=== PATIENT | male | born 1930 | race African-American/Black ===

== ENCOUNTER → 2016-11-01 | Outpatient (CLI) | payer OTHER ==
[~2016-11-01] MED LIST: IOPAMIDOL (ISOVUE-300) 100 ML BTL IV ONE
== END ==
LOC: FIMAGING 10:18
PROVIDERS: ATTEND Psychiatry & Neurology Neurology
DX: M43.17 Spondylolisthesis, lumbosacral region (principal); M51.36 Other intervertebral disc degeneration, lumbar region; K59.00 Constipation, unspecified
CPT/HCPCS: 72193; Q9967

== ENCOUNTER → 2016-11-09 | Outpatient (CLI) | payer OTHER | LOC: FIMAGING 13:44 | PROVIDERS: ATTEND Internal Medicine | DX: R91.1 Solitary pulmonary nodule (principal); I25.10 Atherosclerotic heart disease of native coronary artery without angina pectoris; Z87.891 Personal history of nicotine dependence; Z85.46 Personal history of malignant neoplasm of prostate ==

== ENCOUNTER → 2016-12-05 | Outpatient (CLI) | payer OTHER | LOC: FIMAGING 08:22 | PROVIDERS: ATTEND Internal Medicine Hematology & Oncology | DX: Z13.820 Encounter for screening for osteoporosis (principal); M85.80 Other specified disorders of bone density and structure, unspecified site; Z82.62 Family history of osteoporosis; Z85.46 Personal history of malignant neoplasm of prostate ==

== ENCOUNTER → 2017-07-05 | Outpatient (CLI) | payer OTHER | LOC: FIMAGING 08:07 | PROVIDERS: ATTEND Internal Medicine Hematology & Oncology | DX: M19.90 Unspecified osteoarthritis, unspecified site (principal); M43.17 Spondylolisthesis, lumbosacral region; Z98.1 Arthrodesis status; C61 Malignant neoplasm of prostate; Z95.0 Presence of cardiac pacemaker | CPT/HCPCS: 72040; 72100; 78306; A9503 ==

== ENCOUNTER → 2017-10-26 | Outpatient (CLI) | payer OTHER | LOC: FCPNEURO 21:00 | PROVIDERS: ATTEND Student in an Organized Health Care Education/Training Program | DX: G47.33 Obstructive sleep apnea (adult) (pediatric) (principal); G47.61 Periodic limb movement disorder ==

== ENCOUNTER 2018-02-11 21:02 | Inpatient (IN) | payer OTHER ==
--- NOTE | 2018-02-11 21:09 | EDPHY ---
H & P Time Seen by Provider: 02/11/18 21:08 HPI/ROS: Chief complaint. Bilateral knee pain HPI. 88-year-old male here by EMS with inability to walk. Bilateral knee pain. Dependent edema. Weakness to both legs. He has apparently been getting more weak through the day today. Both legs have been swollen quite some time. 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 He denies chest pain, shortness of breath, fever. No abdominal pain. ROS Constitutional. no fever/chills, no weakness Eyes. no problems with vision ENT. no sore throat, no nasal drainage Cardiovascular. no chest pain Respiratory. no shortness of breath, no cough Abdominal. no abdominal pain, no nausea/vomiting, no diarrhea . no problems urinating MS. Bilateral leg swelling and bilateral knee pain Skin. no rash Lymph. no swollen glands Neuro. Can't walk Past Medical/Surgical History: Neck fusion, pneumonia, DVT/PE, CVA, prostate cancer Social History: , nonsmoker, no alcohol Smoking Status: Former smoker Physical Exam: General Appearance: Alert well-developed male moderate distress vital signs are stable Eyes: Pupils equal and round no pallor or injection. ENT, Mouth: Mucous membranes are moist. Respiratory: There are no retractions, lungs are clear to auscultation. Cardiovascular: Regular rate and rhythm. Gastrointestinal: Abdomen is soft and nontender, no masses, bowel sounds normal. Neurological: Awake and alert, sensory and motor exams grossly normal. Skin: Warm and dry, no rashes. Musculoskeletal: Neck is supple nontender. Extremities bilateral leg swelling from knees down. Psychiatric: Patient is oriented X 3, there is no agitation. Constitutional: Initial Vital Signs Temperature (C) 36.7 C 02/11/18 21:10 Heart Rate 67 02/11/18 21:10 Respiratory Rate 16 02/11/18 21:10 Blood Pressure 176/96 H 02/11/18 21:10 O2 Sat (%) 97 02/11/18 21:10 O2 Delivery Mode Room Air Allergies/Adverse Reactions: No Known Allergies Allergy (Unverified 12/25/15 22:53) Home Medications: Medication Instructions Recorded Aspirin 81mg (OTC) 12/25/15 Casodex (RX) 12/25/15 Lipitor 12/25/15 Namenda 5 mg (RX) 12/25/15 Proscar 5 MG (RX) 12/25/15 Eliquis 02/11/18 Medical Decision Making - Diagnostics Imaging Results: Imaging Impressions Chest X-Ray 02/11/18 21:09 Impression: 1. No acute findings in the chest. 2. Limited assessment of groundglass opacity seen on the prior CT. If this has not been followed on an outside CT, recommend follow-up unenhanced chest CT. 3. Cardiomegaly without onelia failure. 4. Additional findings, as above. Findings discussed with JOSH PARRA 02/11/2018 at 22:00. Knee X-Ray 02/11/18 21:09 Impression: 1. Increased moderate bilateral osteoarthritis with no acute osseous findings. 2. Small left and trace right effusions. 3. Additional findings as above. Knee X-Ray 02/11/18 21:09 Impression: 1. Increased moderate bilateral osteoarthritis with no acute osseous findings. 2. Small left and trace right effusions. 3. Additional findings as above. Extremity Venous Study 02/11/18 21:10 Impression: No evidence of deep vein thrombosis in the lower extremities. Findings discussed with JOSH PARRA 02/11/2018 at 21:43. Ultrasound both lower extremities reviewed by me and discussed with Dr. Cuellar showed no DVT nodule adjacent left upper lobe visible on CT--needs followup CT per Dr. Cuellar Chest x-ray otherwise shows LVH but no pneumonia Bilateral knee x-rays shows DJD but no fracture dislocation Procedures: IV normal saline, monitor Clots are cleared by patient blowing. Afrin nose spray to both nostrils. Inspection reveals no bleeding from the right nostril and some old blood in little bit of oozing of blood from the left nostril. No obvious source. Cotton ball soaked in TXA solution is placed in the left nostril. ED Course/Re-evaluation: On re-evaluation patient is stable. He and his and I talked about imaging and lab results. We discussed treatment plan including recommendation for admission. He expresses understanding agreement We attempted to ambulate the patient in the emergency department he was unable to ambulate. I consulted discussed case with Dr. Yee who agrees to the admission Differential Diagnosis: Can't walk. I considered DVT, knee fractures, autoimmune. He has a normal sed rate. No significant evidence for congestive heart failure despite bilateral pedal edema - Data Points Laboratory Results: Laboratory Results 02/11/18 22:55 02/11/18 22:30 02/11/18 02/11/18 02/11/18 22:58 22:55 22:55 WBC 4.72 10^3/uL 10^3/uL (3.80-9.50) RBC 3.38 10^6/uL L 10^6/uL (4.40-6.38) Hgb 11.8 g/dL L g/dL (13.7-17.5) Hct 35.3 % L % (40.0-51.0) MCV 104.4 fL H fL (81.5-99.8) MCH 34.9 pg H pg (27.9-34.1) MCHC 33.4 g/dL g/dL (32.4-36.7) RDW 13.7 % % (11.5-15.2) Plt Count 170 10^3/uL 10^3/uL (150-400) MPV 10.2 fL fL (8.7-11.7) Neut % (Auto) 62.5 % % (39.3-74.2) Lymph % (Auto) 24.2 % % (15.0-45.0) [place] % (Auto) 11.7 % % (4.5-13.0) Eos % (Auto) 0.8 % % (0.6-7.6) Baso % (Auto) 0.8 % % (0.3-1.7) Nucleat RBC Rel Count 0.0 % % (0.0-0.2) Absolute Neuts (auto) 2.95 10^3/uL 10^3/uL (1.70-6.50) Absolute Lymphs (auto) 1.14 10^3/uL 10^3/uL (1.00-3.00) Absolute Monos (auto) 0.55 10^3/uL 10^3/uL (0.30-0.80) Absolute Eos (auto) 0.04 10^3/uL 10^3/uL (0.03-0.40) Absolute Basos (auto) 0.04 10^3/uL 10^3/uL (0.02-0.10) Absolute Nucleated RBC 0.00 10^3/uL 10^3/uL (0-0.01) Immature Gran % 0.0 % % (0.0-1.1) Immature Gran # 0.00 10^3/uL 10^3/uL (0.00-0.10) ESR 5 MM/HR MM/HR (0-20) PT 15.9 SEC H SEC (12.0-15.0) INR 1.25 H (0.83-1.16) APTT 31.7 SEC SEC (23.0-38.0) Sodium Potassium Chloride Carbon Dioxide Anion Gap BUN Creatinine Estimated GFR Glucose Calcium POC Troponin I 0.01 ng/mL ng/mL (0.00-0.08) NT-Pro-B Natriuret Pep 02/11/18 02/11/18 22:30 22:30 WBC RBC Hgb Hct MCV MCH MCHC RDW Plt Count MPV Neut % (Auto) Lymph % (Auto) [place] % (Auto) Eos % (Auto) Baso % (Auto) Nucleat RBC Rel Count Absolute Neuts (auto) Absolute Lymphs (auto) Absolute Monos (auto) Absolute Eos (auto) Absolute Basos (auto) Absolute Nucleated RBC Immature Gran % Immature Gran # ESR PT REJ INR TNP APTT Sodium 143 mEq/L mEq/L (135-145) Potassium 4.5 mEq/L mEq/L (3.3-5.0) Chloride 107 mEq/L mEq/L (97-110) Carbon Dioxide 27 mEq/l mEq/l (22-31) Anion Gap 9 mEq/L mEq/L (8-16) BUN 23 mg/dL mg/dL (7-23) Creatinine 1.2 mg/dL mg/dL (0.7-1.3) Estimated GFR 57 Glucose 90 mg/dL mg/dL (70-100) Calcium 8.6 mg/dL mg/dL (8.5-10.4) POC Troponin I NT-Pro-B Natriuret Pep 404 pg/mL pg/mL (0-450) Medications Given: Discontinued Medications Acetaminophen (Tylenol) 650 mg PO EDNOW ONE Stop: 02/11/18 23:25 Last Admin: 02/11/18 23:26 Dose: 650 mg Point of Care Test Results: Chemistry 02/11/18 22:58 POC Troponin I 0.01 ng/mL ng/mL (0.00-0.08) Departure - Departure Disposition: Home, Routine, Self-Care Clinical Impression: Cannot walk Condition: Fair Referrals: Patient,NotPresent [Unknown] - As per Instructions
--- NOTE | 2018-02-11 22:47 | CPEKG ---
Heart Rate: 65 RR Interval: 923 P-R Interval: 184 QRSD Interval: 152 QT Interval: 472 QTC Interval: 491 QRS Stephens: -27 T Wave Stephens: 156 EKG Severity - ABNORMAL ECG - EKG Impression: ATRIAL-PACED RHYTHM EKG Impression: LEFT BUNDLE BRANCH BLOCK EKG Impression: ATRIAL PACING IS NEW IN COMPARISON TO PRIOR Electronically Signed By: Cam Gibbs 14-Feb-2018 20:42:01
[2018-02-11 23:05] LABS: PLATELET COUNT 170 10^3/uL (150-400)
[2018-02-11 23:14] LABS: INR 1.25 (0.83-1.16); PROTIME(PATIENT) 15.9 SEC (12.0-15.0)
[2018-02-11] MEDS ORDERED: ACETAMINOPHEN 325 MG TAB PO ONE (23:24)
[2018-02-12] MEDS ORDERED: ONDANSETRON 4 MG/2 ML VIAL IVP PRN (00:19)
[2018-02-12] MEDS ORDERED: ONDANSETRON DISINTEGRATING 4 MG TAB PO PRN (00:19)
--- NOTE | 2018-02-12 03:24 | PDGENHP ---
History and Physical - Chief Complaint Weakness - History of Present Illness 88 yo M w/ hx of DVT, bradycardia s/p PPM, HTN, and prostate CA p/w sub-acute weakness. Patient tells me he has been feeling weak for some time. This progressed to the point where he fell a few times yesterday and could not get up on his own. He is complaining of L hip and bilateral knee pain, but denies acute trauma to any of those sites. He denies infectious ROS and denies recent illness. At the time of my evaluation his only complaint is knee pain. His vital signs have been unremarkable aside from hypertension. He was unable to ambulate in the ED so he is being admitted for evaluation. History Information - Allergies/Home Medication List Allergies/Adverse Reactions: No Known Allergies Allergy (Unverified 12/25/15 22:53) Home Medications: Aspirin 81mg (OTC) 12/25/15 [Last Taken Unknown] Casodex (RX) 12/25/15 [Last Taken Unknown] Lipitor 12/25/15 [Last Taken Unknown] Namenda 5 mg (RX) 12/25/15 [Last Taken Unknown] Proscar 5 MG (RX) 12/25/15 [Last Taken Unknown] Eliquis 02/11/18 [Last Taken Unknown] I have personally reviewed and updated: family history, medical history - Past Medical History cancer (Prostate), DVT, hypertension - Surgical History Reports: pacemaker/AICD - Family History Positive for: cancer - Social History Smoking Status: Former smoker Review of Systems Review of Systems: ROS: 10pt was reviewed & negative except for what was stated in HPI & below Physical Exam Physical Exam: Temp Pulse Resp BP Pulse Ox 36.7 C 66 14 183/106 H 96 02/12/18 02:30 02/12/18 02:30 02/12/18 02:30 02/12/18 02:30 02/12/18 02:30 Constitutional: no apparent distress, appears nourished Eyes: PERRL, EOMI Ears, Nose, Mouth, Throat: moist mucous membranes, no oral mucosal ulcers Cardiovascular: regular rate and rhythym, systolic murmur, edema (1+ b/l FANTA) Respiratory: no respiratory distress, clear to auscultation Gastrointestinal: normoactive bowel sounds, soft, non-tender abdomen Skin: warm, normal color, other (mild LUE edema) Neurologic: AAOx3, weakness (Sublte, b/l LE weakness (4+/5) R>L), CN II-XII Intact Psychiatric: interacting appropriately, not anxious Lab Data & Imaging Review 02/11/18 22:55 02/11/18 22:30 WBC 4.72 10^3/uL (3.80-9.50) 02/11/18 22:55 RBC 3.38 10^6/uL (4.40-6.38) L 02/11/18 22:55 Hgb 11.8 g/dL (13.7-17.5) L 02/11/18 22:55 Hct 35.3 % (40.0-51.0) L 02/11/18 22:55 MCV 104.4 fL (81.5-99.8) H 02/11/18 22:55 MCH 34.9 pg (27.9-34.1) H 02/11/18 22:55 MCHC 33.4 g/dL (32.4-36.7) 02/11/18 22:55 RDW 13.7 % (11.5-15.2) 02/11/18 22:55 Plt Count 170 10^3/uL (150-400) 02/11/18 22:55 MPV 10.2 fL (8.7-11.7) 02/11/18 22:55 Neut % (Auto) 62.5 % (39.3-74.2) 02/11/18 22:55 Lymph % (Auto) 24.2 % (15.0-45.0) 02/11/18 22:55 [place] % (Auto) 11.7 % (4.5-13.0) 02/11/18 22:55 Eos % (Auto) 0.8 % (0.6-7.6) 02/11/18 22:55 Baso % (Auto) 0.8 % (0.3-1.7) 02/11/18 22:55 Nucleat RBC Rel Count 0.0 % (0.0-0.2) 02/11/18 22:55 Absolute Neuts (auto) 2.95 10^3/uL (1.70-6.50) 02/11/18 22:55 Absolute Lymphs (auto) 1.14 10^3/uL (1.00-3.00) 02/11/18 22:55 Absolute Monos (auto) 0.55 10^3/uL (0.30-0.80) 02/11/18 22:55 Absolute Eos (auto) 0.04 10^3/uL (0.03-0.40) 02/11/18 22:55 Absolute Basos (auto) 0.04 10^3/uL (0.02-0.10) 02/11/18 22:55 Absolute Nucleated RBC 0.00 10^3/uL (0-0.01) 02/11/18 22:55 Immature Gran % 0.0 % (0.0-1.1) 02/11/18:55 Immature Gran # 0.00 10^3/uL (0.00-0.10) 02/11/18 22:55 ESR 5 MM/HR (0-20) 02/11/18 22:55 PT 15.9 SEC (12.0-15.0) H 02/11/18 22:55 INR 1.25 (0.83-1.16) H 02/11/18 22:55 APTT 31.7 SEC (23.0-38.0) 02/11/18 22:55 Sodium 143 mEq/L (135-145) 02/11/18 22:30 Potassium 4.5 mEq/L (3.3-5.0) 02/11/18 22:30 Chloride 107 mEq/L (97-110) 02/11/18 22:30 Carbon Dioxide 27 mEq/l (22-31) 02/11/18 22:30 Anion Gap 9 mEq/L (8-16) 02/11/18 22:30 BUN 23 mg/dL (7-23) 02/11/18 22:30 Creatinine 1.2 mg/dL (0.7-1.3) 02/11/18 22:30 Estimated GFR 57 02/11/18 22:30 Glucose 90 mg/dL (70-100) 02/11/18 22:30 Calcium 8.6 mg/dL (8.5-10.4) 02/11/18 22:30 POC Troponin I 0.01 ng/mL (0.00-0.08) 02/11/18 22:58 NT-Pro-B Natriuret Pep 404 pg/mL (0-450) 02/11/18 22:30 Imaging Review: Imaging Impressions Chest X-Ray 02/11/18 21:09 Impression: 1. No acute findings in the chest. 2. Limited assessment of groundglass opacity seen on the prior CT. If this has not been followed on an outside CT, recommend follow-up unenhanced chest CT. 3. Cardiomegaly without onelia failure. 4. Additional findings, as above. Findings discussed with JOSH PARRA 02/11/2018 at 22:00. Knee X-Ray 02/11/18 21:09 Impression: 1. Increased moderate bilateral osteoarthritis with no acute osseous findings. 2. Small left and trace right effusions. 3. Additional findings as above. Knee X-Ray 02/11/18 21:09 Impression: 1. Increased moderate bilateral osteoarthritis with no acute osseous findings. 2. Small left and trace right effusions. 3. Additional findings as above. Extremity Venous Study 02/11/18 21:10 Impression: No evidence of deep vein thrombosis in the lower extremities. Findings discussed with JOSH PARRA 02/11/2018 at 21:43. Visualized and Interpreted EKG results: Yes EKG Interpretation: Positive for: other (Atrially paced, LBBB) Assessment & Plan Assessment: 88 yo M p/w subacute weakness. Plan: 1. Subacute weakness - Generalized; patient tells me this has been progressing for some time. I suspect this is mostly due to deconditioning, unclear if additional, acute etiology is present. Laboratory work-up, CXR, b/l knee XR's, and b/l LE dopplers not revealing of acute pathology. - Admit for observation - PT/OT evaluations - Will order UA to complete basic infectious work-up 2. Hypertension - Elevated while here but improved when allowed to rest. Needs med reconciliation as patient does not recall home meds. 3. 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 4. Hx of prostate CA 5. Bradycardia - s/p PPM Diet - Regular Code - Full Ppx - LMWH Dispo - Admit under observation status
[2018-02-12 09:32] LABS: PLATELET COUNT 145 10^3/uL (150-400)
[2018-02-12] MEDS: ACETAMINOPHEN 325 MG TAB PO PRN (11:53)
--- NOTE | 2018-02-12 12:02 | ASMTCMCOM ---
CM Note CM Note Notes: Chart reviewed for discharge planning purposes. 88 year old male admitted through the ED with inability to walk. He normally resides at home with his . He has two sons but they live in [place] and [place]. Patient undergoing diagnostics at this time. PT and OT evals pending. CM to follow. Plan: TBD Date Signed: 02/12/2018 12:02 PM Electronically Signed By:Pamela Deal RN
--- NOTE | 2018-02-12 14:16 | HOSPPROG ---
Hospitalist Progress Note Assessment/Plan: 1. Subacute weakness * says mostly legs with pain in back and hip and radiating dfown legs * will get MRI spine and pelvis * has a history prostate cancer 2. Hypertension 3. 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 4. Hx of prostate CA - recurrence 2013 5. Bradycardia - s/p PPM Subjective: no changes Objective: Vital Signs Temp Pulse Resp BP Pulse Ox 36.8 C 76 16 153/103 H 96 02/12/18 08:26 02/12/18 13:27 02/12/18 13:27 02/12/18 13:27 02/12/18 13:27 Laboratory Results 02/12/18 09:24 02/12/18 09:24 02/11/18 02/12/18 02/13/18 05:59 05:59 05:59 Intake Total 200 Output Total 500 Balance -300 PT 15.9 SEC (12.0-15.0) H 02/11/18 22:55 INR 1.25 (0.83-1.16) H 02/11/18 22:55 - Physical Exam Constitutional: no apparent distress, appears nourished, not in pain Eyes: anicteric sclera, EOMI Ears, Nose, Mouth, Throat: moist mucous membranes, hearing normal Cardiovascular: regular rate and rhythym, no murmur, rub, or gallop Respiratory: no respiratory distress, no rales or rhonchi Gastrointestinal: normoactive bowel sounds, soft, non-tender abdomen, no palpable masses Skin: warm Neurologic: AAOx3, other (decreased patellar reflexes), No weakness (no foca;) ICD10 Worksheet Patient Problems: Problems Problem Status Onset Cannot walk Acute DVT (deep venous thrombosis) Acute Hypertension Acute Internal jugular vein thrombosis Acute Swelling of left hand Acute
--- NOTE | 2018-02-12 16:18 | GCON ---
[f rep st] CONSULTATION ONCOLOGY INITIAL VISIT. PRIMARY ONCOLOGIST: Lisbeth Jimenez MD REASON FOR CONSULTATION: Metastatic prostate cancer. HISTORY OF PRESENT ILLNESS: The patient is an 88-year-old gentleman, whom I follow for [facility]. He was diagnosed in 2000, with a stage II (T1c) prostate cancer with a PSA less than 10. He und erwent brachytherapy. In 2010, he had a rising PSA, and it was greater than 10 by 2012. He started and was on bicalutamide plus finasteride from August 17 through June 2017, requiring prophylacti c radiation to his breast for gynecomastia. Due to rising PSA, I converted him over to Lupron plus P rolia in July 2017. Prior to doing that, I obtained a bone scan in July 2017, which did not show any definitive osseous metastasis. He had a compression fracture at L2. I performed a bone den sity scan last year that showed just mild osteopenia. I recently saw him on January 08, and he was doing about the same. We talked about once his PSA dropped b elow 1, we could consider doing cyclic Lupron; however, at home, he had been having progressive weakn ess in his lower extremities. He had had some pain in the right lower extremity but weaker on the le ft. He also has some pain in his left low back. He denies any trauma. When he was at the dinner ta ble last night, he states that he could not get up, and so [facility]. Thus far, workup has been unrevealing. He has a pacemaker, and they are seeing if it is the right kind that can be used with an MRI. PAST MEDICAL HISTORY: ALLERGIES: He has no known drug allergies. HOME MEDICATIONS: Include the Lupron every 3 months and Prolia every 6 months, cholecalciferol, gluc osamine, gabapentin, donepezil, apixaban, and acetaminophen. CHRONIC ILLNESSES: Include the prostate cancer as per HPI, history of DVT, hypertension, and early d ementia. He has had a previous TIA, elevated cholesterol, pacemakers placed for sinus bradycardia, C OPD. SURGICAL HISTORY: Includes appendectomy, hemorrhoidectomy, plate in C5, vasectomy, cataract surgery, and the pacemaker surgery. SOCIAL HISTORY: He is . 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 He only uses alcohol occasionally . Does not abuse any drugs. He is a 94-[id number]-history smoker. FAMILY HISTORY: Grew up in [place], with descent. Mother at age 36 pos tpartum. Father maybe from bladder cancer. He is unsure. One brother of throat cancer. Another brother from unknown causes, and a sister of CHF, and then, he has 4 children. REVIEW OF SYSTEMS: 10-point review of systems performed. Pertinent positives per HPI. Otherwise ne gative. PHYSICAL EXAM: VITAL SIGNS: Temperature 36.8. Pulse is 76. Blood pressure is 153/103. GENERAL: He is a comfortable-appearing gentleman sitting up in a chair, in no distress. HEEN T: Unremarkable. LUNGS: Clear. CARDIAC: Regular. ABDOMEN: Soft, nontender without organomegaly . MUSCULOSKELETAL: Nontender over his spine. SULEMA EXAM: Reveals no peripheral lymphadenopathy. LOWER EXTREMITIES: He has some mild weakness, left worse than right. DTRs are decreased bilaterally . He has sensation in his feet, but he does feel that it is somewhat numbed. LABS: Mild anemia, 12.1, but normal white count and platelet count. Chemistries were unremarkable. Chest x-ray showed some cardiomegaly. Knee x-ray: Some arthritis, trace effusions. Extremities: Venous study showed no DVT. Most recent PSA, 1 month ago, was down to 3.33 and continued to drop sin ce he started on Lupron, which was at 15 in July. IMPRESSION: 1. Metastatic prostate cancer without obvious bone lesions on last bone scan. 2. Subacute lower extremity weakness of unclear cause. 3. Cardiac history with pacemaker. 4. Early dementia. I do not have an explanation for his lower extremity weakness. Definitely with his history of prosta te cancer, even though it seems to be responding, I agree with getting an MRI of his lower spine. If there is a mass present, I would lean towards getting a biopsy if it can be safely done just to make sure it is not some other etiology with his responding PSA and negative bone scan in the last 6 chris hs. I did not recommend steroids at this time since it is unclear as to the cause, but if it worsens , it maybe some we need to initiate. I will follow along with you while he is in the hospital. /[id number]/MODL
[2018-02-12] MEDS: hydrALAZINE 20 MG/ML VIAL IVP PRN (20:06)
[2018-02-12] MEDS: APIXABAN 5 MG TAB PO SCH (20:11)
[2018-02-12] MEDS: GABAPENTIN 300 MG CAP PO SCH (20:11)
[2018-02-12] MEDS: DONEPEZIL HCL 5 MG TAB PO SCH (20:11)
[2018-02-12] MEDS ORDERED: LACTULOSE 20 GM/30 ML UDCUP PO PRN (22:26)
[2018-02-12] MEDS ORDERED: POLYETHYLENE GLYCOL 3350 17 GM PKT PO PRN (22:26)
[2018-02-12] MEDS ORDERED: BISACODYL 10 MG SUPP PR PRN (22:26)
[2018-02-12] MEDS: MAGNESIUM HYDROXIDE 30 ML UDCUP PO PRN (22:51)
[2018-02-13] MEDS ORDERED: GADOBUTROL 10 ML VIAL IVP ONE (17:03)
--- NOTE | 2018-02-13 22:29 | ASMTCMCOM ---
CM Note CM Note Notes: Chart reviewed, discussed patient status with MD. MRI not done due to patient having high blood pressure. Dr. Thao hopes to attempt test again today. Patient will likely need a SNF at discharge as he is unable to ambulate. CM to follow for needs. Plan: TBD likely SNF rehab Date Signed: 02/13/2018 11:43 AM Electronically Signed By:Pamela Deal RN
[2018-02-14] MEDS: hydrALAZINE 20 MG/ML VIAL IVP PRN ×2 (06:11→16:53)
[2018-02-14] MEDS: APIXABAN 5 MG TAB PO SCH ×3 (06:43→22:30)
[2018-02-14] MEDS: DONEPEZIL HCL 5 MG TAB PO SCH ×2 (06:44→22:30)
[2018-02-14] MEDS: GABAPENTIN 300 MG CAP PO SCH (06:44)
[2018-02-14] MEDS: SENNOSIDES/DOCUSATE SODIUM TAB PO SCH ×3 (06:44→22:30)
--- NOTE | 2018-02-14 10:33 | PDMN ---
Medical Necessity Medical necessity: change to IP; los>2mn for subacute weakness likely r/t deconditioning, mostly in LE's with pain in back and hip, radiating down legs; admit for MRI's, PT/OT;comorbid htn, hx DVT, bradycardia, and prostate CA; pre order and progress note 02/12/18
--- NOTE | 2018-02-14 13:02 | SOAPPROG ---
SOAP Progress Note Assessment/Plan: E&M prostate cancer * Prostate cancer: no previous obvious mets on either last bone scan or new MRI. On LHRH agonist with good response with dropping PSA * Lower Ext. Weakness: spinal stenosis on MRI; no sign of malignancy. Agree with PT * Early dementia: No behavioral issues reported Subjective: Walking in peralta with PT. No acute complaints although not as strong as he would like. Objective: Vital Signs Temp Pulse Resp BP Pulse Ox 36.8 C 65 18 114/68 96 02/14/18 08:36 02/14/18 08:36 02/14/18 08:36 02/14/18 08:36 02/14/18 08:36 Laboratory Results 02/12/18 09:24 02/12/18 09:24 02/13/18 02/14/18 02/15/18 05:59 05:59 05:59 Intake Total 240 400 Output Total 475 550 350 Balance -235 -150 -350 PT 15.9 SEC (12.0-15.0) H 02/11/18 22:55 INR 1.25 (0.83-1.16) H 02/11/18 22:55 MRI Lumbar Spine (Without and With Contrast) Impression: 1. Bilateral moderate to severe foraminal stenosis at L4-L5 and L5-S1, right worse than left at both levels. Both the right L4 as well as right L5 nerves may be affected. 2. Mild multilevel canal stenosis as above described, mostly due to facet arthropathy. 3. 6 mm anterolisthesis of L5 on S1. Dictated By: America Cyr MD Physical Exam - Physical Exam General Appearance: no apparent distress Neuro/Psych: other (walking with assistance and walker) ICD10 Worksheet Patient Problems: Problems Problem Status Onset Cannot walk Acute DVT (deep venous thrombosis) Acute Hypertension Acute Internal jugular vein thrombosis Acute Swelling of left hand Acute
--- NOTE | 2018-02-14 14:10 | ASMTCMCOM ---
CM Note CM Note Notes: PT recommending SNF. Pt and agreed. They are interested in [facility]. Referral faxed. CM to follow. Date Signed: 02/14/2018 02:10 PM Electronically Signed By:Christin Barun LCSW
--- NOTE | 2018-02-14 14:25 | HOSPPROG ---
Hospitalist Progress Note Assessment/Plan: 1. L4-5, L5-S1 Spinal stenosis with bilateral radiculopathy and weakness right worse than Left * cont with PT/OT * Will need Rehab * Can f/u with NS as an op if needed, although not a good surgical candidate given his dementia 2. Hypertension 3. 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 4. Hx of prostate CA - recurrence 2013 -no e/o of mets on MRI 5. Bradycardia - s/p PPM 6. Dementia Plan: Cont PT SNF tomorrow Change Gabapentin from 300 HS to 100 TID. Can titrate from there Subjective: still with some radiculopathy. Has some confusion. no cp or sob. no n/v. Objective: Vital Signs Temp Pulse Resp BP Pulse Ox 36.8 C 65 18 114/68 96 02/14/18 08:36 02/14/18 08:36 02/14/18 08:36 02/14/18 08:36 02/14/18 08:36 Laboratory Results 02/12/18 09:24 02/12/18 09:24 02/13/18 02/14/18 02/15/18 05:59 05:59 05:59 Intake Total 240 400 Output Total 475 550 350 Balance -235 -150 -350 PT 15.9 SEC (12.0-15.0) H 02/11/18 22:55 INR 1.25 (0.83-1.16) H 02/11/18 22:55 - Physical Exam Constitutional: no apparent distress Eyes: PERRL, EOMI Ears, Nose, Mouth, Throat: moist mucous membranes, hearing normal, ears appear normal Cardiovascular: regular rate and rhythym, No edema Respiratory: no respiratory distress, no rales or rhonchi, clear to auscultation Gastrointestinal: normoactive bowel sounds, soft, non-tender abdomen Skin: warm Musculoskeletal: generalized weakness Neurologic: No AAOx3 Psychiatric: interacting appropriately, encephalopathic Lymph, Heme, Immunologic: No petechiae ICD10 Worksheet Patient Problems: Problems Problem Status Onset Cannot walk Acute DVT (deep venous thrombosis) Acute Hypertension Acute Internal jugular vein thrombosis Acute Swelling of left hand Acute
[2018-02-14] MEDS ORDERED: GABAPENTIN 300 MG CAP PO SCH (16:00)
[2018-02-14] MEDS: GABAPENTIN 100 MG CAP PO SCH ×2 (16:53→22:30)
[2018-02-14] MEDS: ACETAMINOPHEN 325 MG TAB PO PRN (22:29)
[2018-02-14] MEDS: MAGNESIUM HYDROXIDE 30 ML UDCUP PO PRN (22:30)
[2018-02-15] MEDS: APIXABAN 5 MG TAB PO SCH (08:56)
[2018-02-15] MEDS: SENNOSIDES/DOCUSATE SODIUM TAB PO SCH (08:56)
[2018-02-15] MEDS: GABAPENTIN 100 MG CAP PO SCH (08:56)
[2018-02-15 11:35] VITALS: BP 158/90
[2018-02-15] MEDS ORDERED: GABAPENTIN 100 MG CAP PO SCH (12:07)
--- NOTE | 2018-02-15 12:16 | PDIAF ---
- Diagnosis Diagnosis: back pain Code Status: Full Code - Medication Management Discharge Medications: Medications to Continue on Transfer Apixaban [Eliquis] 5 mg PO BID 02/11/18 [Last Taken Unknown] Acetaminophen [Tylenol 325mg (*)] 325 mg PO DAILY PRN 02/12/18 [Last Taken Unknown] Cholecalciferol Vit D3 [Vitamin D3 (*)] 1,000 units PO DAILY 02/12/18 [Last Taken Unknown] Donepezil HCl [Aricept 5 MG (*)] 5 mg PO HS 02/12/18 [Last Taken Unknown] Glucosamine Sulfate [Glucosamine Sulfate 500 MG (*)] 500 mg PO DAILY 02/12/18 [ Last Taken Unknown] Herbals/Supplements -Info Only 1 ea PO DAILY 02/12/18 [Last Taken Unknown] Gabapentin [Neurontin 100 MG (*)] 200 mg PO TID #90 cap 02/15/18 [Last Taken Unknown] Polyethylene Glycol 3350 [Miralax 17 gm (*)] 17 gm PO DAILY PRN #30 pkt [Last Taken Unknown] Discharge Medications: Refer to the Discharge Home Medication list for PRN reason. - Orders Services needed: Registered Nurse, Physical Therapy, Occupational Therapy Diet Recommendation: no restrictions on diet Diet Texture: Regular Texture Diet Additional Instructions: Activity: as tolerated F/U: with PCP in 1-3 weeks - Follow Up Care Current Providers and Referrals: Patient,NotPresent [Unknown] - As per Instructions
--- NOTE | 2018-02-15 12:43 | ASMTCMCOM ---
CM Note CM Note Notes: Chart reviewed. Patient medically clear to dc today. [facility] accepted. Final orders sent via allscripts. Transportation has been arranged for 2 pm via wheelchair. CM available should other needs arise. Plan: To [facility] rehab. Date Signed: 02/15/2018 12:42 PM Electronically Signed By:Pamela Deal RN
--- NOTE | 2018-02-15 12:46 | ASMTLACE ---
LACE Length of stay for Answers: 3 days current admission Acuity / Level of Answers: Yes Care: Did the patient have an inpatient admission? Comorbidities - select Answers: Any tumor (including all that apply lymphoma or leukemia) Cerebrovascular disease (CVA, TIA, aneurysms, vasc ular dementia) Other Notes: Hx of DVT/PE; HTN # of Emergency department Answers: 1-2 visits in the last 6 months Score: 11 Date Signed: 02/15/2018 12:44 PM Electronically Signed By:Pamela Deal RN
--- NOTE | 2018-02-15 14:14 | PDDCSUM ---
Discharge Summary Discharge Summary: This is a 88 yo male admitted with low back pain with radiculopathy and weakness. Given his hx of prostate cancer there was concerns for recurrence. MRI did not show this but was c/w with L4-5, L5-S1 Spinal stenosis. Given his dementia and advance age, he was felt not to be a good surgical candidate and a trial of rehab will be attempted first and prior to additional f/u with NS. He is being d/c to SNF DDX 1. L4-5, L5-S1 Spinal stenosis with bilateral radiculopathy and weakness right worse than Left * cont with PT/OT * Will need Rehab * Can f/u with NS as an op if needed, although not a good surgical candidate given his dementia 2. Hypertension 3. 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 4. Hx of prostate CA - recurrence 2013 -no e/o of mets on MRI 5. Bradycardia - s/p PPM 6. Dementia Exam: NAD AAOX3 RRR CTA B S/NT/ND MEDS: SEE MED REC F/U: WITH PCP IN 1-2 WEEKS TOTAL TIME SPENT ON D/C IS 35 MINS
--- NOTE | 2018-02-15 15:01 | ASDISCHSUM ---
Discharge Information Plan Status:SNF Medically Cleared to Leave:02/15/2018 Discharge Date:02/15/2018 02:03 PM D/C Disposition:Senior Living Facility ADT D/C Disposition:Senior Living Facility Projected Discharge Date:02/15/2018 11:00 AM Transportation at D/C: Discharge Delay Reason: Follow-Up Date:02/15/2018 11:00 AM Discharge Slot: Final Diagnosis: Placement Information Referral Type:*Retirement/SNF Referral ID:[id number] Provider Name:Madeline Raymundo Address 1:[address] Phone Number: Address 2: Fax Number: City:[place] Selection Factors: State:[place] Patient Contact Information Contact Name:EFE Relationship: Address:[address] City:[place] Alternate Phone: State/Zip Code:[place] [address] Email: Financial Information Financial Class:Medicare Primary Plan Desc:MEDICARE INPATIENT Primary Plan Number:[id number] Secondary Plan Desc:[employer] Secondary Plan Number:[id number] Assessment Information LACE LACE Length of stay for Answers: 3 days current admission Acuity / Level of Answers: Yes Care: Did the patient have an inpatient admission? Comorbidities - select Answers: Any tumor (including all that apply lymphoma or leukemia) Cerebrovascular disease (CVA, TIA, aneurysms, vasc ular dementia) Other Notes: Hx of DVT/PE; HTN # of Emergency department Answers: 1-2 visits in the last 6 months Score: 11 Date Signed: 02/15/2018 12:44 PM Electronically Signed By:Pamela Deal RN [facility] CM Progress Note CM Note CM Note Notes: Chart reviewed for discharge planning purposes. 88 year old male admitted through the ED with inability to walk. He normally resides at home with his . He has two sons but they live in [place]. Patient undergoing diagnostics at this time. PT and OT jazmynals pending. CM to follow. Plan: TBD Date Signed: 02/12/2018 12:02 PM Electronically Signed By:Pamela Deal RN [facility] CM Progress Note CM Note CM Note Notes: Chart reviewed, discussed patient status with MD. MRI not done due to patient having high blood pressure. Dr. Thao hopes to attempt test again today. Patient will likely need a SNF at discharge as he is unable to ambulate. CM to follow for needs. Plan: TBD likely SNF rehab Date Signed: 02/13/2018 11:43 AM Electronically Signed By:Pamela Deal RN [facility] CM Progress Note CM Note CM Note Notes: PT recommending SNF. Pt and agreed. They are interested in [facility]. Referral faxed. CM to follow. Date Signed: 02/14/2018 02:10 PM Electronically Signed By:Christin Braun LCSW [facility] CM Progress Note CM Note CM Note Notes: Chart reviewed. Patient medically clear to dc today. [facility] accepted. Final orders sent via [employer]Whatever. Transportation has been arranged for 2 pm via wheelchair. CM available should other needs arise. Plan: To [facility] rehab. Date Signed: 02/15/2018 12:42 PM Electronically Signed By:Pamela Deal RN Intervention Information Intervention Type:*CROFT-Signed Date of Service:02/12/2018 01:54 PM Patient Type:Observation Staff Member:Alicia Nash Hours: Discipline: Severity: Comment: Intervention Type:*IM-Signed Date of Service:02/15/2018 01:52 PM Patient Type:Inpatient Staff Member:Alicia Nash Hours: Discipline: Severity: Comment:
== END 2018-02-15 14:03 | DRG 552 ==
LOC: EDUNIT# → OBSVTOIN 02-12 00:19 → F1N 02-12 02:28
PROVIDERS: ADMIT Student in an Organized Health Care Education/Training Program; ATTEND Student in an Organized Health Care Education/Training Program
DX: M48.061 Spinal stenosis, lumbar region without neurogenic claudication (principal); M48.07 Spinal stenosis, lumbosacral region; F03.90 Unspecified dementia, unspecified severity, without behavioral disturbance, psychotic disturbance, mood disturbance, and anxiety; M54.16 Radiculopathy, lumbar region; M54.17 Radiculopathy, lumbosacral region; I10 Essential (primary) hypertension; R00.1 Bradycardia, unspecified; Z86.718 Personal history of other venous thrombosis and embolism; Z79.01 Long term (current) use of anticoagulants; Z95.810 Presence of automatic (implantable) cardiac defibrillator; Z85.46 Personal history of malignant neoplasm of prostate
CPT/HCPCS: 84484-PO; 97110-GP; 97116-GP; 97161-GP; A9585; G8978-GP-CJ; G8978-GP-CK; G8979-GP-CI; G8980-GP-CJ; J0360

== ENCOUNTER → 2018-04-24 | Outpatient (CLI) | payer OTHER | LOC: FIMAGING 08:53 | PROVIDERS: ATTEND Psychiatry & Neurology Neurology | DX: M48.03 Spinal stenosis, cervicothoracic region (principal); M48.02 Spinal stenosis, cervical region; M50.21 Other cervical disc displacement, high cervical region; Z98.890 Other specified postprocedural states ==

== ENCOUNTER → 2018-09-27 | Outpatient (CLI) | payer OTHER | LOC: FCPNEURO 20:00 | PROVIDERS: ATTEND Student in an Organized Health Care Education/Training Program | DX: G47.33 Obstructive sleep apnea (adult) (pediatric) (principal); G47.39 Other sleep apnea ==

== ENCOUNTER → 2018-12-13 | Outpatient (CLI) | payer OTHER | LOC: FCPNEURO 06:55 | PROVIDERS: ATTEND Student in an Organized Health Care Education/Training Program | DX: G47.33 Obstructive sleep apnea (adult) (pediatric) (principal) ==